=== PATIENT | female | born 2000 | race Two or more races ===

== ENCOUNTER 2024-04-12 22:52 | Inpatient (IN) | payer OTHER ==
[~2024-04-12] VITALS: Ht 152.4 cm; Wt 63.5 kg
[2024-04-12 22:50] VITALS: BP 105/65
[~2024-04-12 22:52] MED LIST: PRENA1 CHEW TA1.4 MG; ZOFRAN8 MG
[2024-04-12] MEDS ORDERED: LOPERAMIDE HCL 2 MG CAPSULE PO STA (22:56)
[2024-04-12] MEDS ORDERED: DEXTROSE 5%-LACTATED RINGERS 1,000 ML IV SCH (23:00)
[2024-04-12] MEDS ORDERED: ONDANSETRON HCL 2 MG/ML VIAL IV SCH (23:00)
[2024-04-12 23:58] VITALS: BP 115/64
[2024-04-13 00:43] LABS: HEMATOCRIT 33.8 % (36.0-45.00); HEMOGLOBIN 11.4 g/dL (12.0-15.00); MEAN CELL VOLUME 88.5 fL (80.00-100.00); MEAN CORPUSCULAR HEMOGLOBIN 29.8 pg (27.00-32.0); MEAN CORPUSCULAR HGB CONC 33.7 g/dl (32.0-36.0); PLATELET COUNT 291 K/uL (150-450); RED BLOOD COUNT 3.82 M/uL (4.00-6.00); RED CELL DISTRIBUTION WIDTH 13.1 % (11.5-14.5)
[2024-04-13 01:30] LABS: ALBUMIN 2.6 gm/dL (3.4-5.0); BILIRUBIN TOTAL 0.89 mg/dL (0.3-1.2); CREATININE SERUM 0.58 mg/dL (0.55-1.02); GFR 126.67; GLOBULINA 4.3 G/DL (2.4-3.5); POTASSIUM 4.09 mEq/L (3.5-5.1); TOTAL PROTEIN 6.9 gm/dL (6.4-8.2)
[2024-04-13 04:54] VITALS: BP 94/55
[2024-04-13] MEDS ORDERED: LOPERAMIDE HCL 2 MG CAPSULE PO SCH (06:00)
[2024-04-13 06:19] VITALS: BP 92/47; O2SAT 97
[2024-04-13] MEDS ORDERED: RINGERS SOLUTION,LACTATED 1,000 ML IV SCH (07:30)
[2024-04-13 10:54] VITALS: BP 83/50
[2024-04-13 15:43] VITALS: BP 97/61
[2024-04-13 17:03] VITALS: BP 92/55
[2024-04-14 00:48] VITALS: BP 91/53
[2024-04-14 08:19] VITALS: BP 90/55
== END 2024-04-14 10:08 | disposition home or self-care (01) | DRG 833 ==
LOC: LDR 22:52 → OB/GYN 04-13 16:02
PROVIDERS: ADMIT Obstetrics & Gynecology Maternal & Fetal Medicine; ATTEND Obstetrics & Gynecology Maternal & Fetal Medicine
PROC: 4A1HXCZ Monitoring of Products of Conception, Cardiac Rate, External Approach (ICD-10-PCS; principal; 2024-04-12)
DX: O21.8 Other vomiting complicating pregnancy (principal); Z3A.34 34 weeks gestation of pregnancy; Z20.822 Contact with and (suspected) exposure to COVID-19

== ENCOUNTER 2024-05-08 01:44 | Inpatient (IN) | payer OTHER ==
[2024-05-08] VITALS (10 sets, daily range): BP systolic 96–127; BP diastolic 50–67
[~2024-05-08] VITALS: Ht 152.4 cm; Wt 60.8 kg
[2024-05-08] MEDS ORDERED: RINGERS SOLUTION,LACTATED 1,000 ML IV SCH (02:00)
[2024-05-08] MEDS ORDERED: MORPHINE SULFATE 4 MG/ML CARTRIDGE IV PRN (02:00)
[2024-05-08 02:14] LABS: HEMATOCRIT 30.9 % (36.0-45.00); HEMOGLOBIN 10.8 g/dL (12.0-15.00); MEAN CELL VOLUME 84.7 fL (80.00-100.00); MEAN CORPUSCULAR HEMOGLOBIN 29.6 pg (27.00-32.0); MEAN CORPUSCULAR HGB CONC 34.9 g/dl (32.0-36.0); PLATELET COUNT 219 K/uL (150-450); RED BLOOD COUNT 3.64 M/uL (4.00-6.00); RED CELL DISTRIBUTION WIDTH 13.9 % (11.5-14.5)
[2024-05-08 02:34] LABS: INR < 0.93; PARTIAL THROMBOPLASTIN TIME 25.6 SECONDS (22.0-34.0)
[2024-05-08] MEDS ORDERED: OXYTOCIN 20 UNITS/500ML RL PIGGYBAG IV SCH (07:45)
[2024-05-08] MEDS ORDERED: OxyCODONE HCL/APAP UD (PERCOCET) PO PRN (08:45)
[2024-05-08] MEDS ORDERED: CHLORHEXIDINE GLUCONATE 120 ML BOTTLE TP SCH (08:45)
[2024-05-08] MEDS ORDERED: OXYTOCIN 1,000 ML IV SCH (08:45)
[2024-05-08] MEDS ORDERED: IBUprofen 400 MG TABLET PO PRN (08:45)
[2024-05-08] MEDS ORDERED: DOCUSATE SODIUM 100MG CAP PO SCH (09:00)
[2024-05-08] MEDS ORDERED: NALOXONE HCL 0.4 MG/ML AMPUL IM ONE (09:15)
[2024-05-09 08:22] VITALS: BP 105/60
[2024-05-09] MEDS ORDERED: FF) RHO(D) IMMUNE GLOBULIN (POM) IM ONE (10:45)
[2024-05-09 16:36] VITALS: BP 117/63
[2024-05-10 00:58] VITALS: BP 107/69
[2024-05-10 07:40] VITALS: BP 103/60
== END 2024-05-10 11:05 | disposition home or self-care (01) | DRG 768 ==
LOC: LDR 01:44 → OB/GYN 01:44
PROVIDERS: ADMIT Obstetrics & Gynecology; ATTEND Obstetrics & Gynecology
PROC: 10E0XZZ Delivery of Products of Conception, External Approach (ICD-10-PCS; principal; 2024-05-08)
PROC: 0DQR0ZZ Repair Anal Sphincter, Open Approach (ICD-10-PCS; 2024-05-08)
PROC: 0W8NXZZ Division of Female Perineum, External Approach (ICD-10-PCS; 2024-05-08)
PROC: 4A1HXCZ Monitoring of Products of Conception, Cardiac Rate, External Approach (ICD-10-PCS; 2024-05-08)
DX: O70.21 Third degree perineal laceration during delivery, IIIa (principal); Z37.0 Single live birth; Z3A.38 38 weeks gestation of pregnancy; Z20.822 Contact with and (suspected) exposure to COVID-19